=== PATIENT | male | born 1965 | race Two or more races ===

== ENCOUNTER 2017-07-25 11:30 | Emergency (ER) | payer MEDICARE, OTHER ==
[~2017-07-25] VITALS: Ht 167.6 cm; Wt 65.0 kg
[~2017-07-25 11:30] MED LIST: CARB200T PO; CETI10 PO; DILA100C PO; FISH1000 PO; FLON0.053; NAPR500T PO; OMEG1CAP28 PO; OMEP20TA PO; PHEN100C PO; RANI150T PO; SERT100 PO; SIMV80TA PO; TAB-TAB PO; ZYPR7.5T PO; ZYRT10TA12 PO
[2017-07-25 12:11] VITALS: BP 119/82; PULSE 95; RESP 20; TEMP 98.7; O2SAT 95
[2017-07-25] MEDS ORDERED: ZOLO100T PO (12:19)
[2017-07-25] MEDS ORDERED: DILA100C PO (12:19)
[2017-07-25] MEDS ORDERED: TEGR200T PO (12:19)
[2017-07-25 12:35] VITALS: BP 113/72; PULSE 81; RESP 16; O2SAT 97
[2017-07-25] MEDS ORDERED: OLAN7.5T PO (12:41)
[2017-07-25] MEDS ORDERED: MULTTAB67 PO (12:41)
[2017-07-25] MEDS ORDERED: SIMV80TA PO (12:41)
--- NOTE | 2017-07-25 13:09 | PD ---
HPI Chief Complaint: Seizure Time Seen by Provider: 12:34 Travel History International Travel<30 days: No Contact w/Intl Traveler<30days: No Traveled to known affect area: No History of Present Illness HPI So 52-year-old man who presents to the emergency department complaining of a seizure. He is a history of seizure disorder. He has had epilepsy for some time. He takes Tegretol and Dilantin for that. He taking the same dose for quite some time. His last seizure was about 2-1/2 years ago. He does not recall the seizure. He otherwise has been feeling generally well and healthy. No recent illness or injury. No pain or complaints now. Feels back to normal. History Past Medical History Narrative Medical Epilepsy Schizoaffective disorder Social History Alcohol Use: No Tobacco Use: No Allergies-Medications (Allergen,Severity, Reaction): Coded Allergies: aspirin (Verified Allergy, Severe, UNK REACTION, 07/25/17) Reported Meds & Prescriptions Reported Meds & Active Scripts Active [id number] Ethyl Esters 1 Gm Cap 1 Gm PO BID Cetirizine (Cetirizine HCl) 10 Mg Tab 10 Mg PO DAILY Ranitidine (Ranitidine HCl) 150 Mg Tab 150 Mg PO BID Reported Simvastatin 80 Mg Tab 80 Mg PO HS Olanzapine 7.5 Mg Tab 7.5 Mg PO HS Multiple Vitamin 1 Tab 1 Tab PO DAILY Zoloft (Sertraline HCl) 100 Mg Tab 100 Mg PO DAILY Tegretol (Carbamazepine) 200 Mg Tab 150 Mg PO BID Dilantin (Phenytoin Extended) 100 Mg Cap 100 Mg PO BID Review of Systems Except as stated in HPI: all other systems reviewed are Neg Physical Exam Narrative GENERAL: Well-appearing 52-year-old man, no acute distress. SKIN: Focused skin assessment warm/dry. HEAD: Atraumatic. Normocephalic. EYES: Pupils equal and round. No scleral icterus. No injection or drainage. ENT: No nasal bleeding or discharge. Mucous membranes pink and moist. NECK: Trachea midline. No JVD. CARDIOVASCULAR: Regular rate and rhythm. No murmur appreciated. RESPIRATORY: No accessory muscle use. Clear to auscultation. Breath sounds equal bilaterally. GASTROINTESTINAL: Abdomen soft, non-tender, nondistended. Hepatic and splenic margins not palpable. MUSCULOSKELETAL: No obvious deformities. No clubbing. No cyanosis. No edema. NEUROLOGICAL: Awake and alert. No obvious cranial nerve deficits. Motor grossly within normal limits. Normal speech. PSYCHIATRIC: Appropriate mood and affect; insight and judgment normal. Data Data Last Documented VS Vital Signs Date Time Temp Pulse Resp B/P (MAP) Pulse Ox O2 Delivery O2 Flow Rate FiO2 07/25/17 12:35 81 16 113/72 (86) 97 Room Air 07/25/17 12:11 98.7 MDM Medical Decision Making Medical Screen Exam Complete: Yes Emergency Medical Condition: Yes Differential Diagnosis Seizure, dehydration, instability, psychiatric disease, other Narrative Course This is a 52-year-old male with history of seizure disorder as a seizures. He spilled otherwise completely well. No changes medications. No recent illness or injury. No complaints now. Recommend outpatient follow-up. Continue medications. Continue seizure precautions. Diagnosis Primary Impression: Epilepsy Patient Instructions: General Instructions Additional Instructions: Do not drive or operate heavy machinery until cleared by neurology. You should avoid being in any situation where if you had a seizure it could be dangerous such as swimming, looking on a ladder, or other such activities. Return to the emergency department for any seizures lasting more than 5 minutes , [id number] seizures, or seizures with prolonged confusion afterwards. Med/Other Pt SpecificInfo: No Change to Meds Disposition: 01 DISCHARGE HOME Condition: Stable Juliano Otoole MD Jul 25, 2017 13:09
[2017-08-08] MEDS ORDERED: CARB200T PO (08:59)
[2017-09-11] MEDS ORDERED: CARB200T PO (11:16)
[2017-09-19] MEDS ORDERED: OMEG1CAP28 PO (15:25)
== END 2017-07-25 13:34 | disposition home or self-care (01) ==
LOC: NEPD 11:30
DX: G40.909 Epilepsy, unspecified, not intractable, without status epilepticus (principal); Z79.899 Other long term (current) drug therapy
CPT/HCPCS: 99281

== ENCOUNTER 2018-01-14 14:09 | Emergency (ER) | payer MEDICARE, OTHER ==
[~2018-01-14] VITALS: Ht 172.7 cm; Wt 80.0 kg
[~2018-01-14 14:09] MED LIST changes: -FISH1000 PO; -FLON0.053; +MULTTAB67 PO; -NAPR500T PO; +OLAN7.5T PO; -OMEP20TA PO; -PHEN100C PO; -SERT100 PO; -TAB-TAB PO; +ZOLO100T PO; -ZYPR7.5T PO; -ZYRT10TA12 PO
[2018-01-14 14:24] VITALS: BP 120/83; PULSE 92; RESP 23; TEMP 98.5; O2SAT 95
[2018-01-14] MEDS ORDERED: SODIUM CHLOR 0.9% 1000 ML INJ 1,000 ML IV ONE (14:25)
--- NOTE | 2018-01-14 14:28 | PD ---
HPI Chief Complaint: Seizure Time Seen by Provider: 14:25 Travel History International Travel<30 days: No Contact w/Intl Traveler<30days: No Traveled to known affect area: No History of Present Illness HPI 52-year-old male patient with history of seizures, presents to the ER today brought in by EMS after an episode of seizure at rehab clinic. He was initially postictal but is arousable and oriented in the ER. He states that the last seizure he had was in July. He takes Tegretol and Depakote, has been taking them regularly, took some this morning. He denies any injuries or any other issues. Modifying Factors: None Associated Signs & Symptoms: Seizure Risk Factors: History of seizures PFSH Past Medical History Blood Disorders: No Depression: Yes Cancer: No Cardiovascular Problems: No High Cholesterol: Yes Diminished Hearing: No Endocrine: No Genitourinary: No Immune Disorder: No Musculoskeletal: No Reproductive: No Respiratory: No Seizures: Yes Past Surgical History Cholecystectomy: Yes Social History Alcohol Use: No Tobacco Use: No Substance Use: No Allergies-Medications (Allergen,Severity, Reaction): Coded Allergies: aspirin (Verified Allergy, Severe, UNK REACTION, 01/14/18) Reported Meds & Prescriptions Reported Meds & Active Scripts Active Simvastatin 80 Mg Tab 80 Mg PO HS Ranitidine (Ranitidine HCl) 150 Mg Tab 150 Mg PO BID [id number] Ethyl Esters 1 Gm Cap 1 Gm PO BID Carbamazepine 200 Mg Tab 300 Mg PO BID Cetirizine (Cetirizine HCl) 10 Mg Tab 10 Mg PO DAILY Reported Olanzapine 7.5 Mg Tab 7.5 Mg PO HS Multiple Vitamin 1 Tab 1 Tab PO DAILY Zoloft (Sertraline HCl) 100 Mg Tab 100 Mg PO DAILY Dilantin (Phenytoin Extended) 100 Mg Cap 100 Mg PO BID Review of Systems Except as stated in HPI: all other systems reviewed are Neg Physical Exam Narrative GENERAL: Well-developed middle-age male patient currently in no acute distress. Awake and oriented 3. SKIN: Focused skin assessment warm/dry. HEAD: Atraumatic. Normocephalic. EYES: Pupils equal and round. No scleral icterus. No injection or drainage. ENT: No nasal bleeding or discharge. Mucous membranes pink and moist. NECK: Trachea midline. No JVD. CARDIOVASCULAR: Regular rate and rhythm. No murmur appreciated. RESPIRATORY: No accessory muscle use. Clear to auscultation. Breath sounds equal bilaterally. GASTROINTESTINAL: Abdomen soft, non-tender, nondistended. Hepatic and splenic margins not palpable. MUSCULOSKELETAL: No obvious deformities. No clubbing. No cyanosis. No edema. NEUROLOGICAL: Awake and alert. No obvious cranial nerve deficits. Motor grossly within normal limits. Normal speech. PSYCHIATRIC: Appropriate mood and affect; insight and judgment normal. Data Data Last Documented VS Vital Signs Date Time Temp Pulse Resp B/P (MAP) Pulse Ox O2 Delivery O2 Flow Rate FiO2 01/14/18 14:34 Room Air 01/14/18 14:24 98.5 92 23 120/83 (95) 95 Orders Orders Complete Blood Count With Diff (01/14/18 14:25) Carbamazepine (Tegretol) (01/14/18 14:25) Valproic Acid (Depakene) (01/14/18 14:25) Electrocardiogram (01/14/18 ) Blood Glucose (01/14/18 14:25) Ecg Monitoring (01/14/18 14:25) Iv Access Insert/Monitor (01/14/18 14:25) Oximetry (01/14/18 14:25) Comprehensive Metabolic Panel (01/14/18 14:25) Sodium Chlor 0.9% 1000 Ml Inj (Ns 1000 M (01/14/18 14:25) Sodium Chloride 0.9% Flush (Ns Flush) (01/14/18 14:30) Phenytoin (Dilantin) (01/14/18 16:17) Ed Discharge Order (01/14/18 17:05) Labs Laboratory Tests Test 01/14/18 14:30 White Blood Count 7.2 TH/MM3 Red Blood Count 4.89 MIL/MM3 Hemoglobin 15.8 GM/DL Hematocrit 46.0 % Mean Corpuscular Volume 94.2 FL Mean Corpuscular Hemoglobin 32.3 PG Mean Corpuscular Hemoglobin Concent 34.2 % Red Cell Distribution Width 13.1 % Platelet Count 249 TH/MM3 Mean Platelet Volume 6.9 FL Neutrophils (%) (Auto) 68.9 % Lymphocytes (%) (Auto) 22.7 % Monocytes (%) (Auto) 7.1 % Eosinophils (%) (Auto) 0.9 % Basophils (%) (Auto) 0.4 % Neutrophils # (Auto) 5.0 TH/MM3 Lymphocytes # (Auto) 1.6 TH/MM3 Monocytes # (Auto) 0.5 TH/MM3 Eosinophils # (Auto) 0.1 TH/MM3 Basophils # (Auto) 0.0 TH/MM3 CBC Comment DIFF FINAL Differential Comment Blood Urea Nitrogen 9 MG/DL Creatinine 1.09 MG/DL Random Glucose 118 MG/DL Total Protein 8.1 GM/DL Albumin 4.3 GM/DL Calcium Level 9.1 MG/DL Alkaline Phosphatase 106 U/L Aspartate Amino Transf (AST/SGOT) 32 U/L Alanine Aminotransferase (ALT/SGPT) 27 U/L Total Bilirubin 0.4 MG/DL Sodium Level 137 MEQ/L Potassium Level 4.3 MEQ/L Chloride Level 102 MEQ/L Carbon Dioxide Level 25.2 MEQ/L Anion Gap 10 MEQ/L Estimat Glomerular Filtration Rate 71 ML/MIN Phenytoin (Dilantin) Level 13.2 MCG/ML Valproic Acid (Depakene) Level 4 MCG/ML Carbamazepine (Tegretol) Level 6.4 MCG/ML [facility] Medical Decision Making Medical Screen Exam Complete: Yes Emergency Medical Condition: Yes Medical Record Reviewed: Yes Interpretation(s) EKG shows NSR, no ST elevation or depression, and no arrhythmias. No significant T-wave inversions. Laboratory Tests Test 01/14/18 14:30 Mean Platelet Volume 6.9 FL (7.0-11.0) Random Glucose 118 MG/DL (74-106) Estimat Glomerular Filtration Rate 71 ML/MIN (>89) Valproic Acid (Depakene) Level 4 MCG/ML (50-100) Differential Diagnosis Seizure: Rule out metabolic issues versus medication noncompliance versus breakthrough seizures Narrative Course Patient is on Tegretol and Dilantin, and levels are stable. Lab work was otherwise unremarkable. Patient is awake and alert in the ER. Vital signs are stable. My plan would be to release him with follow-up to primary care physician and neurology. Return for worsening in symptoms as needed. The plan has been discussed with him he states understanding. Diagnosis Primary Impression: Seizure Disposition: 01 DISCHARGE HOME Condition: Stable Timur Bailey MD Jan 14, 2018 14:28
[2018-01-14] MEDS ORDERED: SODIUM CHLORIDE 0.9% FLUSH 10 ML FLUSH IVF PRN (14:30)
[2018-01-14 15:32] LABS: BASOPHIL % 0.4 % (0.0-2.0); EOSINOPHIL # 0.1 TH/MM3 (0-0.4); EOSINOPHIL % 0.9 % (0.0-4.0); HEMOGLOBIN 15.8 GM/DL (13.0-17.0); LYMPH % 22.7 % (9.0-44.0); LYMPHOCYTE # 1.6 TH/MM3 (1.0-4.8); MEAN CELL VOLUME 94.2 FL (80.0-100.0); MEAN CORPUSCULAR HEMOGLOBIN 32.3 PG (27.0-34.0); MEAN CORPUSCULAR HGB CONC 34.2 % (32.0-36.0); MEAN PLATELET VOLUME 6.9 FL (7.0-11.0); MONO % 7.1 % (0.0-8.0); MONOCYTE # 0.5 TH/MM3 (0-0.9); NEUT % 68.9 % (16.0-70.0); PLATELET COUNT 249 TH/MM3 (150-450); RED BLOOD COUNT 4.89 MIL/MM3 (4.50-5.90); RED CELL DISTRIBUTION WIDTH 13.1 % (11.6-17.2); WHITE BLOOD COUNT 7.2 TH/MM3 (4.0-11.0)
[2018-01-14 15:53] LABS: ALKALINE PHOSPHATASE 106 U/L (45-117); CARBAMAZEPINE (TEGRETOL) 6.4 MCG/ML (4.0-12.0); TOTAL BILIRUBIN ADULT 0.4 MG/DL (0.2-1.0); TOTAL PROTEIN 8.1 GM/DL (6.4-8.2)
[2018-01-14 16:00] VITALS: BP 146/81; PULSE 77; RESP 15; O2SAT 96
[2018-01-14 16:06] LABS: ALBUMIN 4.3 GM/DL (3.4-5.0); ALT (GPT) 27 U/L (12-78); AST (GOT) 32 U/L (15-37); BICARBONATE 25.2 MEQ/L (21.0-32.0); BLOOD UREA NITROGEN 9 MG/DL (7-18); CALCIUM 9.1 MG/DL (8.5-10.1); CHLORIDE 102 MEQ/L (98-107); CREATININE 1.09 MG/DL (0.60-1.30); GLOMERULAR FILTRATION RATE 71 ML/MIN (>89); GLUCOSE,RANDOM 118 MG/DL (74-106); SODIUM (NA) 137 MEQ/L (136-145)
[2018-01-14 17:00] VITALS: BP 135/98; PULSE 80; RESP 19; O2SAT 98
--- NOTE | 2018-01-15 14:49 | EKG ---
Date Performed: 01/14/2018 Time Performed: 14:24:12 PTAGE: 52 years EKG: Sinus rhythm NONSPECIFIC T-WAVE ABNORMALITY BORDERLINE ECG PREVIOUS TRACING : 01/21/2015 10.03 Since the prior tracing, there has been no significant elizabeth DOCTOR: Nasim Ndiaye Interpretating Date/Time 01/15/2018 14:42:30
== END 2018-01-14 17:44 | disposition home or self-care (01) ==
LOC: NEPC 14:09
DX: R56.9 Unspecified convulsions (principal); R94.31 Abnormal electrocardiogram [ECG] [EKG]; F32.9 Major depressive disorder, single episode, unspecified; E78.00 Pure hypercholesterolemia, unspecified; Z79.899 Other long term (current) drug therapy; Z88.6 Allergy status to analgesic agent
CPT/HCPCS: 80053; 80156; 80164; 80185; 85025; 93005; 96360; 99284; J7030